=== PATIENT | female | born 1950 | race Caucasian/White ===

== ENCOUNTER 2018-09-14 10:41 | Inpatient (IN) | payer OTHER, MEDICARE ==
[~2018-09-14 10:41] MED LIST: ROPIVACAINE 0.2% 80 MG, EPINEPHrine 0.2 MG, KETOROLAC TROMETHAMINE 30 MG, morphINE 10 M... IU ONE; TRANEXAMIC ACID 1,000 MG in NS 100 ML IV ONE
[2018-09-14] MEDS ORDERED: DEXAMETHASONE 4 MG/ML VIAL IVP ONE (11:20)
[2018-09-14] MEDS ORDERED: FAMOTIDINE 20 MG TAB PO ONE (11:20)
[2018-09-14] MEDS ORDERED: ceFAZolin 2 GM/DEXTROSE 100 ML IV ONE (11:20)
[2018-09-14] MEDS ORDERED: ACETAMINOPHEN 325 MG TAB PO ONE (11:20)
[2018-09-14] MEDS ORDERED: LIDOCAINE 1% 2 ML INJ ID PRN (11:21)
[2018-09-14] MEDS ORDERED: LR 1,000 ML IV ONE (11:21)
[2018-09-14] MEDS ORDERED: ceFAZolin 1 GM/5 ML SYR ONE (12:17)
--- NOTE | 2018-09-14 12:56 | PDHPUP ---
History & Physical Update H&P update statement: This history and physical update is based on an assessment of the patient which was completed after admission or registration (within 24 hours), but prior to the surgery/procedure. H&P update: H&P reviewed & patient examined, no change in patient's condition since H&P completed
--- NOTE | 2018-09-14 13:05 | PDANEPAE ---
ANE History of Present Illness right knee pain ANE Past Medical History - Cardiovascular History Hx Hypertension: Yes Hx Arrhythmias: No Hx Chest Pain: No Hx Coronary Artery / Peripheral Vascular Disease: No Hx CHF / Valvular Disease: No Hx Palpitations: No - Pulmonary History Hx COPD: No Hx Asthma/Reactive Airway Disease: Yes Hx Recent Upper Respiratory Infection: No Hx Oxygen in Use at Home: No Hx Sleep Apnea: No Sleep Apnea Screening Result - Last Documented: Negative Pulmonary History Comment: ASTHMA EXERCISE INDUCED SINCE AGE 59. URI 05/2018 TREATED WITH ANTIBIOTICS - Neurologic History Hx Cerebrovascular Accident: No Hx Seizures: No Hx Dementia: No - Endocrine History Hx Diabetes: No Hypothyroid: Yes Obesity: moderate Endocrine History Comment: HYPOTHYROID - Renal History Hx Renal Disorders: No - Liver History Hx Hepatic Disorders: No - Neurological & Psychiatric Hx Hx Neurological and Psychiatric Disorders: No - Cancer History Hx Cancer: No - Congenital Disorder History Hx Congenital Disorders: No - GI History GERD: mild Hx Gastrointestinal Disorders: Yes Gastrointestinal History Comment: GERD - Other Health History Other Health History: SEASONAL ALLERGIES. OSTEOARTHRITIS - Chronic Pain History Chronic Pain: Yes (PARISH KNEES and chronic back pain) - Surgical History Prior Surgeries: TLIF L3-4. Carpal tunnel right side,. Right knee scope,. hysterectomy total. APPENDECTOMY. TONSILLECTOMY ANE Review of Systems Review of Systems: - Exercise capacity Exercise capacity: >=4 METS METS (RN): 4 METS ANE Patient History - Allergies Allergies/Adverse Reactions: clindamycin Allergy (Verified 08/19/18 16:31) NAUSEA hydrocodone bitartrate [From Vicodin] Allergy (Verified 08/19/18 16:31) Abdominal Pain tramadol HCl [From Ultram] Allergy (Verified 08/19/18 16:31) ELEVATED HEART RATE Shingles Vaccine Allergy (Uncoded 08/19/18 16:31) ARM SWELLING - Home Medications Home Medications: Triamterene/Hydrochlorothiazid [Triamterene-Hctz 75-50 mg Tab] 0.5 tab PO DAILY 01/11/12 [Last Taken 09/13/18 07:30] Atorvastatin Calcium [Lipitor 20 mg (*)] 20 mg PO DAILY 06/02/13 [Last Taken 03/26 22:00] Levothyroxine [Synthroid 50 mcg (*)] 50 mcg PO DAILY06 06/02/13 [Last Taken 04/26 07:30] Losartan Potassium [Cozaar 50 mg (*)] 100 mg PO DAILY 06/02/13 [Last Taken 09/13 07:30] Albuterol [Proventil Inhaler HFA (*)] 2 puffs IH Q4H PRN 09/08/16 [Last Taken ] Estradiol [Estradiol 1 MG (*)] 0.5 mg PO DAILY 09/08/16 [Last Taken 09/14/18 07: 30] Glucosamine/Chondroitin [Glucosamine/Chondroitin (*)] 1 each PO DAILY 09/08/16 [ Last Taken 08/31/18] Herbals/Supplements -Info Only 1 ea PO DAILY 09/08/16 [Last Taken 09/13/18] Pantoprazole Sodium [Protonix 40mg (*)] 40 mg PO DAILY PRN 09/08/16 [Last Taken 09/13/18 22:00] Aspirin EC [Aspirin EC 81 mg (*)] 81 mg PO HS 08/19/18 [Last Taken 08/31/18] Fexofenadine HCl [Jessica Allergy] 60 mg PO HS PRN 08/19/18 [Last Taken 09/13/18 ] Gabapentin [Neurontin 300 MG (*)] 300 mg PO DAILY@12 08/19/18 [Last Taken 12:00] Gabapentin [Neurontin 300 MG (*)] 600 mg PO BID 08/19/18 [Last Taken 09/14/18 07 :30] Hydrocortisone [Cortef 10 mg (*)] 5 mg PO BID 08/19/18 [Last Taken 08/31/18] Levocetirizine Dihydrochloride [Xyzal] 5 mg PO HS PRN 08/19/18 [Last Taken 09/12] Multivitamins [Multivitamin (*)] 1 each PO DAILY 08/19/18 [Last Taken 08/31/18] Wylie-3 Fatty Acids [Fish Oil 1000 mg (*)] 1,000 mg PO DAILY 08/19/18 [Last Taken 08/31/18] Potassium Cl [Klor-Con 20 meq (*)] 10 meq PO DAILY 08/19/18 [Last Taken 09/13/18 ] celeCOXIB [Celebrex (*)] 200 mg PO BID 08/19/18 [Last Taken 08/31/18] guaiFENesin [Mucinex 600 MG (*)] 600 mg PO BID PRN 08/19/18 [Last Taken 09/13/18 ] oxyCODONE/APAP 5/325 [Percocet 5/325 (*)] 1 tab PO Q6H PRN 08/19/18 [Last Taken 09/13/18 22:00] Bevespi Aerosphere Inhaler 09/14/18 [Last Taken 09/14/18 07:30] Warfarin Sodium 09/14/18 [Last Taken 09/13/18 22:00] - NPO status NPO Since - Liquids (Date): 09/14/18 NPO Since - Liquids (Time): 10:00 NPO Since - Solids (Date): 09/13/18 NPO Since - Solids (Time): 00:59 - Anes Hx Anes Hx: no prior problems - Smoking Hx Smoking Status: Never smoked - Family Anes Hx Family Anes Hx: none Family Hx Anesthesia Complications: No ANE Labs/Vital Signs - Vital Signs Blood Pressure: 152/76 Heart Rate: 73 Respiratory Rate: 20 O2 Sat (%): 96 Height: 154.94 cm Weight: 86.183 kg ANE Physical Exam - Airway Neck exam: FROM Mallampati Score: Class 2 Mouth exam: normal dental/mouth exam - Pulmonary Pulmonary: no respiratory distress - Cardiovascular Cardiovascular: regular rate and rhythym - ASA Status ASA Status: III ANE Anesthesia Plan Anesthesia Plan: GA w LMA (Discussed doing spinal for procedure however patient refuses spinal 2/2 h/o back pain and L3-4 fusion. Plan for GA with LMA)
[2018-09-14] MEDS ORDERED: MIDAZOLAM 2 MG/2 ML VIAL IVP ONE (13:06)
[2018-09-14] MEDS ORDERED: fentaNYL 250 MCG/5 ML INJ ONE (13:13)
[2018-09-14] MEDS ORDERED: PROPOFOL 200 MG/20 ML VIAL ONE (13:13)
[2018-09-14] MEDS ORDERED: DEXAMETHASONE 4 MG/ML VIAL ONE ×2 (13:16)
[2018-09-14] MEDS ORDERED: ONDANSETRON 4 MG/2 ML VIAL ONE ×2 (13:17→18:33)
[2018-09-14] MEDS ORDERED: HYDROmorphONE/DILAUDID 2 MG/ML INJ ONE ×3 (14:21→17:28)
[2018-09-14] MEDS ORDERED: LIDOCAINE 2% 5 ML SDV ONE (14:28)
[2018-09-14] MEDS ORDERED: METOCLOPRAMIDE 10 MG/2 ML VIAL IVP PRN (15:53)
[2018-09-14] MEDS ORDERED: LR 500 ML IV PRN (15:53)
[2018-09-14] MEDS ORDERED: oxyCODONE IR 5 MG TAB PO PRN (15:53)
[2018-09-14] MEDS ORDERED: MEPERIDINE 25 MG/0.5 ML AMP IVP PRN (15:53)
[2018-09-14] MEDS ORDERED: PROMETHAZINE HCL 25 MG/ML INJ IVP PRN (15:53)
[2018-09-14] MEDS ORDERED: LABETALOL HCL 5 MG/ML 20 ML MDV IVP PRN (15:53)
[2018-09-14] MEDS ORDERED: NALOXONE HCL 0.4 MG/ML INJ IVP PRN (15:53)
[2018-09-14] MEDS ORDERED: ACETAMINOPHEN 500 MG TAB PO PRN (15:53)
[2018-09-14] MEDS ORDERED: ALBUTEROL 3 ML DEYVIAL IH PRN (15:53)
[2018-09-14] MEDS ORDERED: fentaNYL 100 MCG/2 ML INJ IVP PRN (15:53)
[2018-09-14] MEDS: HYDROmorphONE/DILAUDID 2 MG/ML INJ IVP PRN ×7 (16:21→17:30)
--- NOTE | 2018-09-14 16:23 | SOAPPROG ---
SOAP Progress Note Assessment/Plan: Assessment:S/P RTKA 09/14/[address] Ordonez. No Complications. Plan: [facility] Care ice machine SCD's for mechanical VTE prophylaxis Continue IV Ancef per post-op orders, for 24 hours WBAT RLE PT/OT consults Hospitalist consult appreciated due to pts. coexisting conditions-spoke with Dr. Minor Pain meds as ordered, transition to oral when able Drain can be pulled in 24 hours S: pt. in recovery, just waking up. States that her pain is an 8/10. O: pt. alert, uncomfortable, conversing and answering questions appropriately. 09/14/18 16:19 Objective: Vital Signs Temp Pulse Resp BP Pulse Ox 37.2 C 73 20 152/76 H 96 09/14/18 11:55 09/14/18 13:24 09/14/18 13:24 09/14/18 13:24 09/14/18 13:24 ICD10 Worksheet Patient Problems: Problems Problem Status Onset Arthrodesis status Acute Lumbago Acute Lumbar radiculitis Acute Lumbar stenosis Acute
[2018-09-14] MEDS ORDERED: ACETAMINOPHEN 325 MG TAB PO PRN (16:25)
[2018-09-14] MEDS ORDERED: ONDANSETRON 4 MG/2 ML VIAL IVP PRN (16:25)
[2018-09-14] MEDS ORDERED: HYDROmorphONE/DILAUDID 1 MG/ML INJ IVP PRN (16:25)
--- NOTE | 2018-09-14 16:25 | POSTOPPROG ---
Post Op Note Date of Operation: 09/14/18 Surgeon: Ace Ordonez Chief Controller Center: [facility] Anesthesia: GET(General Endotracheal) Pre-op Diagnosis: Right knee osteoarthritis Post-op Diagnosis: Right Knee osteoarthritis Procedure: right total knee arthroplasty Inf/Abcess present in the surg proc area at time of surgery?: No Depth: Deep Incisional (Fascial) EBL: 50-100 Complications: None Drains: Erasmo Stahl
[2018-09-14] MEDS ORDERED: NS 1,000 ML IV SCH (16:30)
[2018-09-14] MEDS ORDERED: PANTOPRAZOLE SODIUM 40 MG TAB PO PRN (16:35)
[2018-09-14] MEDS ORDERED: oxyCODONE IR 5 MG TAB ONE (17:06)
--- NOTE | 2018-09-14 17:11 | POSTANESTH ---
Post Anesthetic Evaluation Cardiovascular Status: Normal, Stable Respiratory Status: Normal, Stable Level of Consciousness/Mental Status: Can Participate in Eval Pain Control: Adequate, Prn Tx Ordered Nausea/Vomiting Control: Adequate, Prn Tx Ordered Complications Possibly Related to Anesthesia: None Noted
[2018-09-14] MEDS ORDERED: WARFARIN SODIUM 5 MG TAB PO SCH (18:00)
[2018-09-14] MEDS: ceFAZolin 2 GM/DEXTROSE 100 ML IV SCH (20:04)
[2018-09-14] MEDS: GABAPENTIN 300 MG CAP PO SCH (20:50)
[2018-09-14] MEDS: oxyCODONE IR 5 MG TAB PO PRN (20:53)
[2018-09-14] MEDS: ONDANSETRON DISINTEGRATING 4 MG TAB PO PRN (22:16)
[2018-09-15] MEDS: oxyCODONE IR 5 MG TAB PO PRN ×5 (00:04→19:59)
[2018-09-15] MEDS: CYCLOBENZAPRINE 10 MG TAB PO PRN ×4 (00:49→23:19)
--- NOTE | 2018-09-15 02:28 | GOP ---
DATE OF OPERATION: 09/14/2018 SURGEON: Jose Enrique Ordonez MD CELLAR WORKER: Rachael Koenig PA-C. ANESTHESIA: General. PREOPERATIVE DIAGNOSIS: Severe osteoarthritis of the right knee. POSTOPERATIVE DIAGNOSIS: Severe osteoarthritis of the right knee. PROCEDURE PERFORMED: Right total knee arthroplasty. FINDINGS: INDICATIONS: This is a 68-year-old female with progressive and severe pain and disability related to the osteoarthritis, failing nonoperative treatment, being admitted for surgical care. We have discu ssed risks, benefits, and limitations of the procedure preoperatively with the patient. Use of a assistant track and field coach was required to assist in wound exposure. DESCRIPTION OF PROCEDURE: After an adequate general anesthetic was obtained and IV antibiotics were administered, the patient's right lower extremity was prepped and draped in the usual sterile fashion. The limb was exsanguinat ed with the Esmarch and the tourniquet elevated to 300 mmHg pressure. A midline incision was placed over the right knee. Dissection was carried down through the subcutaneous tissues. Hemostasis was o btained using electrocautery. A medial arthrotomy was performed. The patella was dislocated lateral ly. There was severe girb-rx-xbnk osteoarthritis involving the medial and patellofemoral compartment s. The medial and lateral menisci remnants were excised, as was the ACL. Osteophytes were removed. The intramedullary canal of the femur was entered. 9 mm of distal femur was resected in a 5-degree valgus alignment. We initially sized this to a 5 component; however, we then subsequently downsized this to a 4 narrow. The AP cutting jig was applied and the anterior, posterior, and chamfer cuts were now performed in the routine fashion. The intramedullary tibial cutting jig was applied. Approximately 9 mm of proximal tibia was resected perpendicular to the long axis of the tibia with 3 degrees of posterior slope, preserving the php architect ior cruciate ligament. The tibia sized to a 3 component. A trial reduction was now performed using a 3 tibial tray, a 9 mm insert, and a 4 narrow femoral impl ant, and full range of motion with excellent stability was confirmed. The overall alignment was conf irmed to be adequate with a long alignment mary. Tibial tray rotation was marked. The patella was me asured and approximately 8 mm resected. This was sized to a 29 component. The patellar lug holes we re drilled and with the 29 mm trial patellar component, patellar tracking was normal. The femoral lug holes were punched. The proximal tibia was prepared with the keel punch in the routi ne fashion. The first batch of cement was mixed, and the 3 tibial tray was demented into place and held firm whil e the cement hardened. Excess cement was removed. A bone plug was placed in the distal femur. It s hould be mentioned that the proximal tibia was prepared with pulsatile lavage prior to cementing. A second batch of cement was mixed. The distal femur and patellar surfaces were prepared with pulsat ile lavage, and a 4 narrow femoral implant impacted into place. Excess cement was removed, and the k nee was extended with a 9 mm trial insert. The 29 mm patellar button was cemented into place. Exces s cement was removed, and the patellar implant held firm with a patellar clamp while the cement cured . Again, a trial reduction using the 9 mm insert resulted in full extension and flexion, with excellent varus/valgus stability through a full range of motion and normal patellar tracking. After further pulsatile lavage and irrigation, the final 9 mm polyethylene insert was impacted into p lace, and again, excellent range of motion and excellent stability with normal patellar tracking was confirmed. The tourniquet was deflated after 101 minutes' tourniquet time. Hemostasis was obtained using electr ocautery. A large drain was left in place intra-articularly. The medial arthrotomy was closed using interrupted #2 FiberWire and #1 Vicryl sutures. Subcutaneous closure performed using interrupted 2- 0 Vicryl sutures. Skin closed was performed using stainless steel kendell. A cocktail comprised of ropivacaine, epinephrine, ketorolac, and morphine was injected. Sterile dressings were applied, followed by an Josiah wrap. There were no complications. The patient tolerated the procedure well and returned to the recovery r o in stable condition. IMPLANTS UTILIZED: 1. Bush [employer]hew size 4, narrow right, cruciate-retaining Legion Oxinium femoral component. 2. [employer]hew size 3 Cherie II, right, nonporous tibial base plate. 3. [employer]hew 29 mm Cherie II resurfacing patellar component. 4. [employer]hew size 3, 9 mm Legion CR XLPE, high-flexion articular insert. /[id number]/MODL
[2018-09-15] MEDS: LEVOTHYROXINE 50 MCG TAB PO SCH (04:53)
[2018-09-15] MEDS: ceFAZolin 2 GM/DEXTROSE 100 ML IV SCH (04:53)
[2018-09-15 05:18] LABS: INR 1.06 (0.83-1.16)
[2018-09-15] MEDS: ONDANSETRON DISINTEGRATING 4 MG TAB PO PRN (05:35)
[2018-09-15] MEDS: POTASSIUM CL 10 MEQ TAB PO SCH (09:00)
[2018-09-15] MEDS: GABAPENTIN 300 MG CAP PO SCH ×2 (09:00→20:49)
[2018-09-15] MEDS: ESTRADIOL 1 MG TAB PO SCH (09:01)
[2018-09-15] MEDS: ATORVASTATIN CALCIUM 20 MG TAB PO SCH (09:02)
--- NOTE | 2018-09-15 10:31 | SOAPPROG ---
SOAP Progress Note Assessment/Plan: Assessment:S/P RTKA 09/14/[address] Ordonez. No Complications. Plan: COntinue [facility] ice machine SCD's for mechanical VTE prophylaxis-BLE's Continue IV Ancef per post-op orders, for 24 hours WBAT RLE AFO brace ordered due to pts. foot drop. Then she can begin to work with PT/OT. Pt. will not be discharged today. PT/OT consults Hospitalist consult appreciated due to pts. coexisting conditions-spoke with Dr. Minor yesterday. Pain meds as ordered, transition to oral when able. will switch anti-emetic to phenergan to see if better tolerated. Leave drain, can be pulled tomorrow AM. S: pts. knee pain currently managed by oral pain meds only, she is happy with her progress regarding her knee pain. Still has numbness along the outer border of the right lower leg into the dorsal aspect of the foot and toes 1-5. Also has inability to dorsiflex the toes. Pt. had some vomiting after water and crackers. Was able to keep a smoothie down. Naisea seems to be slowly improving. O: pt. alert, uncomfortable, conversing and answering questions appropriately, NAD. Exam of the RLE reveals no redness, warmth, edema. Sensation is not present to light touch to the mid- lateral right lower leg along the lateral lower leg to the lateral ankle, across the dorsal aspect of the foot and into the first three toes. Sensation to light touch slightly present to the 4th and 5th toes. Pt. has no ability to dorsiflex the toes or ankle. She has a foot drop when she is pulled into passive dorsiflexion. Her symptoms of peroneal nerve neuropraxia continue. 09/14/18 16:19 09/15/18 10:27 09/15/18 10:31 Objective: Vital Signs Temp Pulse Resp BP Pulse Ox 37.0 C 71 18 118/60 99 09/15/18 08:00 09/15/18 08:00 09/15/18 08:00 09/15/18 08:00 09/15/18 08:00 09/14/18 09/15/18 09/16/18 05:59 05:59 05:59 Intake Total 2617 Output Total 840 Balance 1777 PT 14.0 SEC (12.0-15.0) 09/15/18 04:40 INR 1.06 (0.83-1.16) 09/15/18 04:40 ICD10 Worksheet Patient Problems: Problems Problem Status Onset Arthrodesis status Acute Lumbago Acute Lumbar radiculitis Acute Lumbar stenosis Acute
[2018-09-15] MEDS: Bevespi Aerosphere Inhaler IH SCH ×2 (10:36→20:55)
[2018-09-15] MEDS: TRIAMTERENE/HCTZ 75/50 1 EACH TAB PO SCH (11:12)
[2018-09-15] MEDS: LOSARTAN POTASSIUM 50 MG TAB PO SCH (11:12)
--- NOTE | 2018-09-15 12:10 | ASMTCMCOM ---
CM Note CM Note Notes: Pt admitted for a scheduled knee surgery, she seems to have developed some "foot drop" PT recommends home care. OT evals pending, pt lives at home with . Met with pt and to discuss home care, CM brought list, referral sent to [facility] and they are able to accept. DC Plan: Homecare/ [facility] (RN/PT) Date Signed: 09/15/2018 12:10 PM Electronically Signed By:Bess Piper RN
[2018-09-15] MEDS ORDERED: ALBUTEROL 60 PUFFS/8 GM MDI IH PRN (13:41)
[2018-09-15] MEDS ORDERED: POLYETHYLENE GLYCOL 3350 17 GM PKT PO PRN (13:47)
[2018-09-15] MEDS ORDERED: BISACODYL 10 MG SUPP PR PRN (13:47)
[2018-09-15] MEDS ORDERED: LACTULOSE 20 GM/30 ML UDCUP PO PRN (13:47)
[2018-09-15] MEDS ORDERED: MAGNESIUM HYDROXIDE 30 ML UDCUP PO PRN (13:47)
--- NOTE | 2018-09-15 14:00 | PDMN ---
Medical Necessity Medical necessity: Changed to IP as of 09/15/18 per MD and MCG S-700; los >2 mn for ongoing pain management, new foot drop, n/v s/p TKA; requiring IVF, pain management, anti-emetics and therapies.
--- NOTE | 2018-09-15 14:28 | GCON ---
REFERRING PHYSICIAN: Jose Enrique Ordonez MD REASON FOR CONSULTATION: Medical management. HISTORY OF PRESENT ILLNESS: The patient is a 68-year-old female who presented to the hospital for a scheduled right total knee arthroplasty. I have seen the patient in the postop setting, and she is d oing well. PAST MEDICAL HISTORY: Asthma, hypertension, hyperlipidemia, hypothyroidism, GERD, chronic pain, oste oarthritis. PAST SURGICAL HISTORY: Spinal fusion, hysterectomy. FAMILY HISTORY: 1. Notable for diabetes mellitus type 2. 2. Hypertension. SOCIAL HISTORY: The patient denies any drugs or tobacco. She has maybe 1-2 alcoholic beverages a we ek. ALLERGIES: To nickel, Ultram, Vicodin, clindamycin, Zostavax. MEDICATIONS: Maxzide, ProAir, Crestor, Synthroid, losartan, potassium, gabapentin, CBD oil, estradio l, aspirin, Protonix. REVIEW OF SYSTEMS: Comprehensive review of systems is done. The patient does complain of right-side d leg and knee pain. She does feel a little bit nauseous. She has no other complaints other than th is. Review of systems is negative other than noted. PHYSICAL EXAM: GENERAL: The patient is alert. VITAL SIGNS: Afebrile, 36.3; pulse is 68; respirato ry rate is 14; blood pressure is 108/59. She is saturating 93% on room air. HEENT: Normocephalic, atraumatic. Mucosal membranes are moist. Pupils equal, round, reactive to light. NECK: Supple. L UNGS: Clear to auscultation bilaterally. No rhonchi or wheezes noted. GASTROINTESTINAL/ABDOMEN: B owel sounds are diminished throughout. There is no guarding or rigidity noted. There is mild disten tion. EXTREMITIES: Without clubbing or cyanosis noted. The right lower extremity is elevated with dressing clean, dry, and intact. SKIN: Without rashes or lesions identified. NEUROLOGICAL: The pa tient has no focal deficits. LABORATORY EVALUATION: PT and INR within normal limits. RADIOLOGICAL STUDIES: Knee x-ray. ASSESSMENT/PLAN: The patient is a 68-year-old female who had a scheduled right total knee arthroplas ty per Dr. Ordonez. Medical conditions include: 1. Asthma. The patient has no signs of acute exacerbation at this time. We will continue her previ ously prescribed home medications. 2. Hypothyroidism. This does appear to be stable. We will not further evaluate her labs during thi s hospitalization. We will continue her home medication. 3. Hypertension. The patient's blood pressure medication was held this morning secondary to lower b lood pressure. We will continue to hold until it appears that her pressure can tolerate her home med ication. 4. Chronic pain. The patient's home medications have been continued. She is responding well to denis gical intervention. 5. Gastroesophageal reflux disease. Protonix will be continued. 6. Constipation. Aggressive bowel protocol has been ordered for the patient as she has not had a jamari wel movement and her bowel sounds are diminished throughout. She is also complaining of some nausea with vomiting when oral intake is present. We will continue to encourage bowel therapy and anticipat e that this will resolve on its own. 7. Deep vein thrombosis prophylaxis. The patient will be reinitiated on Coumadin. We will continue to follow along during this patient's hospitalization. Further physical therapy and occupational therapy evaluations will determine whether she requires shelter facility or [facility] care. Thank you for the consult on this pleasant woman's care. /[id number]/MODL
[2018-09-15] MEDS ORDERED: WARFARIN SODIUM 7.5 MG TAB PO ONE (16:00)
[2018-09-15] MEDS ORDERED: PROMETHAZINE HCL 25 MG/ML INJ IVP PRN (16:20)
[2018-09-15] MEDS ORDERED: LORazepam 2 MG/ML INJ IVP PRN (17:15)
[2018-09-15] MEDS: ACETAMINOPHEN 325 MG TAB PO SCH ×2 (17:30→23:04)
[2018-09-15] MEDS: SENNOSIDES/DOCUSATE SODIUM TAB PO SCH (20:58)
[2018-09-16] MEDS: oxyCODONE IR 5 MG TAB PO PRN ×5 (04:11→23:21)
[2018-09-16] MEDS: ACETAMINOPHEN 325 MG TAB PO SCH ×4 (05:05→23:21)
[2018-09-16] MEDS: LEVOTHYROXINE 50 MCG TAB PO SCH (05:06)
[2018-09-16 05:25] LABS: INR 1.6 (0.83-1.16); PROTIME(PATIENT) 19.2 SEC (12.0-15.0)
[2018-09-16] MEDS: Bevespi Aerosphere Inhaler IH SCH ×2 (08:24→20:13)
[2018-09-16] MEDS: ESTRADIOL 1 MG TAB PO SCH (08:37)
[2018-09-16] MEDS: GABAPENTIN 300 MG CAP PO SCH ×2 (08:37→20:14)
[2018-09-16] MEDS: ATORVASTATIN CALCIUM 20 MG TAB PO SCH (08:37)
[2018-09-16] MEDS: SENNOSIDES/DOCUSATE SODIUM TAB PO SCH ×2 (08:38→20:14)
[2018-09-16] MEDS: LOSARTAN POTASSIUM 50 MG TAB PO SCH (08:40)
[2018-09-16] MEDS: POTASSIUM CL 10 MEQ TAB PO SCH (08:40)
[2018-09-16] MEDS: TRIAMTERENE/HCTZ 75/50 1 EACH TAB PO SCH (08:40)
[2018-09-16] MEDS: CYCLOBENZAPRINE 10 MG TAB PO PRN ×2 (10:53→16:58)
--- NOTE | 2018-09-16 11:28 | SOAPPROG ---
SOAP Progress Note Assessment/Plan: Assessment:S/P RTKA 09/14/[address] Ordonez. No complications intra- operatively. Plan: Continue [facility] Care ice machine SCD's for mechanical VTE prophylaxis-BLE's WBAT RLE AFO brace ordered due to pts. foot drop-awaiting delivery, [facility] was out of them yesterday, will hopefully deliver one this afternoon. Pt. will not be discharged today Continue to work with PT/OT. Pt. has concerns about getting up 4 stairs in her home to enter the house, no spot to place walker. She would like to be able to complete several stairs in PT before she is discharged home. Continue oral pain meds. when able. Pharmacy will continue to dose warfarin until pt. is discharged home. S: Pts. knee pain currently managed by oral pain meds only. At rest pain is minimal, 6/10 with movement. She worked with PT on ROM and ambulation today, stated that her knee felt very swollen, limited her ROM. She still has numbness along the outer border of the right lower leg into the dorsal aspect of the foot and toes 1-5. Also has inability to dorsiflex the toes. Pt. has been able to eat and drink normally today. No further fevers, no chest, pain, SOB. O: pt. alert, comfortable, conversing and answering questions appropriately, NAD. Exam of the RLE reveals no redness, warmth, edema. Her incision appears to be healing well with no surrounding redness, warmth, discharge. Her dressing had slipped, so a new xeroform, gauze and ABD pad applied to her knee. Sensation is not present to light touch to the mid- lateral right lower leg along the lateral lower leg to the lateral ankle, across the dorsal aspect of the foot and into the first three toes. Sensation to light touch slightly present to the 4th and 5th toes. Pt. has no ability to dorsiflex the toes or ankle. She has a foot drop when she is pulled into passive dorsiflexion. Her symptoms of peroneal nerve neuropraxia continue. 09/14/18 16:19 09/15/18 10:27 09/15/18 10:31 09/16/18 11:23 Objective: Vital Signs Temp Pulse Resp BP Pulse Ox 36.9 C 71 16 134/75 H 94 09/16/18 08:44 09/16/18 08:44 09/16/18 08:44 09/16/18 08:44 09/16/18 08:44 09/15/18 09/16/18 09/17/18 05:59 05:59 05:59 Intake Total 2617 1700 Output Total 840 2700 Balance 1777 -1000 PT 19.2 SEC (12.0-15.0) H 09/16/18 04:50 INR 1.60 (0.83-1.16) H 09/16/18 04:50 ICD10 Worksheet Patient Problems: Problems Problem Status Onset Arthrodesis status Acute Lumbago Acute Lumbar radiculitis Acute Lumbar stenosis Acute
--- NOTE | 2018-09-16 12:05 | SOAPPROG ---
SOAP Progress Note Assessment/Plan: Assessment: Stable, post op TKA. 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 Despite this has not had significant recovery in motor/ sensory function. Neurosurgery will review lumbar spine MRI, but does not appear to show any acute changes requiring additional treatment. There was no abnormal dissection or stressing of the joint intaoperatively, nor correction of valgus deformity required. She did have preoperative radiculopathy on the right which perhaps has made the nerve more vulnerable to neuropraxia. Plan: 09/16/18 11:56 Continue PT, awaiting AFO from [facility]. Pain management, observation of neuropraxia. EMG, NCV studies if no recovery in approximately 3 weeks. Subjective: Pain well controlled with Percocet. Nausea improved. Objective: Vital Signs Temp Pulse Resp BP Pulse Ox 36.9 C 71 16 134/75 H 94 09/16/18 08:44 09/16/18 08:44 09/16/18 08:44 09/16/18 08:44 09/16/18 08:44 09/15/18 09/16/18 09/17/18 05:59 05:59 05:59 Intake Total 2617 1700 Output Total 840 2700 Balance 1777 -1000 PT 19.2 SEC (12.0-15.0) H 09/16/18 04:50 INR 1.60 (0.83-1.16) H 09/16/18 04:50 Dressing dry, (wound examined 09/15/18, no erythema or abnormal drainage). Mild swelling of the knee. Compartments soft. Absent sensation over deep and superficial peroneal nerve distribution. Circulation normal. Has trace ankle dorsiflexion which does seem slightly improved, but absent toe dorsiflexion. Normal sensory and motor exam of the tibial nerve distribution. ICD10 Worksheet Patient Problems: Problems Problem Status Onset Arthrodesis status Acute Lumbago Acute Lumbar radiculitis Acute Lumbar stenosis Acute
--- NOTE | 2018-09-16 15:54 | HOSPPROG ---
Hospitalist Progress Note Assessment/Plan: DIAGNOSES: * postop TKA; overall doing reasonably well with modest pain * complication of foot drop after surgery * history of asthma, currently no asthma activity not requiring any treatment * history of hypertension currently well controlled * low-grade temperature elevation at 1 measure last night; current suspicion for infection is low but will follow closely PLANS: * No changes in current medication+ * Physical occupational therapy * Will follow her temperatures closely SUBJECTIVE: Has some knee pain but no other pains Is disappointed that she has the foot drop Eating okay, emptying her bladder and having bowel movements okay OBJECTIVE Vitals reviewed: Stable blood pressure pulse respirations; single temperature 38.3 degrees last night has been normal since Exam: alert oriented skin warm dry color ok resps not labored lungs clear BSs, good air movement heart regular abd soft nondistended nontender, bowel sounds present limbs warm, no edema iv site ok INR 1.6 Objective: Vital Signs Temp Pulse Resp BP Pulse Ox 37.2 C 74 12 127/68 H 95 09/16/18 12:00 09/16/18 12:00 09/16/18 12:00 09/16/18 12:00 09/16/18 12:00 09/15/18 09/16/18 09/17/18 06:59 06:59 06:59 Intake Total 2617 1700 Output Total 840 2700 Balance 1777 -1000 PT 19.2 SEC (12.0-15.0) H 09/16/18 04:50 INR 1.60 (0.83-1.16) H 09/16/18 04:50 ICD10 Worksheet Patient Problems: Problems Problem Status Onset Arthrodesis status Acute Lumbago Acute Lumbar radiculitis Acute Lumbar stenosis Acute
[2018-09-16] MEDS: WARFARIN SODIUM 5 MG TAB PO SCH (16:58)
[2018-09-17 05:24] LABS: INR 1.79 (0.83-1.16); PROTIME(PATIENT) 20.9 SEC (12.0-15.0)
[2018-09-17] MEDS: LEVOTHYROXINE 50 MCG TAB PO SCH (05:37)
[2018-09-17] MEDS: oxyCODONE IR 5 MG TAB PO PRN ×4 (05:38→21:34)
[2018-09-17] MEDS: ACETAMINOPHEN 325 MG TAB PO SCH ×4 (05:38→23:42)
[2018-09-17] MEDS: CYCLOBENZAPRINE 10 MG TAB PO PRN ×2 (05:50→16:33)
[2018-09-17] MEDS: SENNOSIDES/DOCUSATE SODIUM TAB PO SCH ×2 (07:39→21:37)
[2018-09-17] MEDS: LOSARTAN POTASSIUM 50 MG TAB PO SCH (07:40)
[2018-09-17] MEDS: ESTRADIOL 1 MG TAB PO SCH (07:41)
[2018-09-17] MEDS: GABAPENTIN 300 MG CAP PO SCH ×2 (07:41→21:34)
[2018-09-17] MEDS: ATORVASTATIN CALCIUM 20 MG TAB PO SCH (07:42)
[2018-09-17] MEDS: POTASSIUM CL 10 MEQ TAB PO SCH (07:42)
[2018-09-17] MEDS: TRIAMTERENE/HCTZ 75/50 1 EACH TAB PO SCH (07:43)
--- NOTE | 2018-09-17 09:24 | SOAPPROG ---
SOAP Progress Note Assessment/Plan: Assessment:S/P RTKA 09/14/[address] Ordonez. No complications intra- operatively. Plan: Continue [facility] ice machine DVT Prophylaxis: SCD's for mechanical VTE prophylaxis-BLE's. IS. WBAT RLE Maintain dry dressing, Mepiplex, placed today. Maintain dry dressing until first pre-op visit. AFO brace ordered due to pts. foot drop has now arrived. Maintain at all times. Pt. to D/C home once cleared by PT/OT, CM, hospitalists. Continue to work with PT/OT. Appreciate their reccs. Pt. has concerns about getting up 4 stairs in her home to enter the house, no spot to place walker. She would like to be able to complete several stairs in PT before she is discharged home. Continue oral pain meds: percocet. Pharmacy will continue to dose warfarin until pt. is discharged home. She will continue to take warfarin and PT/INR draws outpatient. Neuro has been consulted; I have advised patient to F/U with her neurologist at earliest convenience. Patient's peroneal symptoms cannot disclude the possibility of lumbar radiculopathy symptoms given her weakness in hip flexion, decreased sensation in an L5 distribution and foot drop. I have talked with Rachael Koenig, ROSAURA, and Dr. Ordonez to consult neurology anusha for possible lumbar radiculopathy symptoms. Spoke with Dr. Sanchez's AGRICULTURAL PLOW OPERATOR, Kerry, who said they will try and see her next week; would like to see if we can order an EMG prior to her visit. Will attempt to schedule in preparation. Advised patient to watch for worsening pain, abnormal numbness/tingling, worsening change in distal ROM or strength, change in bowel or bladder function , saddle anesthesia symptoms, cramping in her calves/ankles, worsening change in heat/color of extremities or around wound site, abnormal swelling, fever, chills, abnormal bleeding/oozing/discharge and to seek immediate medical attention if seen. Patient seen/discussed in conjunction with Dr. Ordonez. 09/17/18 09:53 Subjective: Alone in room. Able to respond appropriately to questions. Has passed flatus. No BM. States pain is overall well controlled at this time. She feels comfortable going home on Percocet. She has worked with PT/OT on ROM and ambulation today She still has numbness over the anterolateral aspect of her right lower extremity extending into the dorsum of her foot. She has been able to eat and drink normally today. No further fevers, no chest, pain, SOB. Denies worsening numbness/tingling, worsening change in distal ROM or strength, cough, congestion, dyspnea, cramping in her calves/ankles, abnormal bleeding/ oozing/discharge. Objective: Vital Signs Temp Pulse Resp BP Pulse Ox 36.7 C 69 16 117/62 92 09/17/18 07:25 09/17/18 07:25 09/17/18 07:25 09/17/18 07:43 09/17/18 07:25 09/16/18 09/17/18 09/18/18 05:59 05:59 05:59 Intake Total 1700 2000 325 Output Total 2700 1300 Balance -1000 700 325 PT 20.9 SEC (12.0-15.0) H 09/17/18 04:43 INR 1.79 (0.83-1.16) H 09/17/18 04:43 Patient is alert, comfortable, conversing and answering questions appropriately , NAD. Exam of the RLE reveals no erythema, ecchymosis or calor. Has 2+ non-pitting edema to right knee; all compartments soft. Her incision appears to be well healing well with no erythema, ecchymosis, calor, bleeding, oozing or discharge. Her dressing had slipped, so I have a applied a Mepiplex dressing today. Decreased sensation over anterolateral aspect of right lower extremity extending into dorsum of foot; suspicious of L5 radiculopathy symptoms. Unable to plantarflex/dorsiflex foot at this time. EHL strength: 1/5, unable to test plantarflexion/dorsiflexion strength due to inability to actively move the joint. Foot drop present. Hip flexor strength: 2/5; only able to actively flex the hip when she leans back to compensate; unable to sit up straight and flex her right hip. Concerns of peroneal neuropraxia vs lumbar radiculopathy symptoms at this time. Calves soft/supple and NTTP b/l with negative b/l Homans. Brisk cap refill b/l. Patient is able to ambulate with use of walker; does appear she is walking with a mild Trendelenberg gait. - Pending Discharge Pending Discharge Within 24 Hours: Yes Pending Discharge Date: 09/18/18 Pending Discharge Time: 11:00 ICD10 Worksheet Patient Problems: Problems Problem Status Onset Arthrodesis status Acute Lumbago Acute Lumbar radiculitis Acute Lumbar stenosis Acute
[2018-09-17] MEDS: Bevespi Aerosphere Inhaler IH SCH ×2 (09:27→21:35)
--- NOTE | 2018-09-17 14:05 | HOSPPROG ---
Hospitalist Progress Note Assessment/Plan: DIAGNOSES: * postop TKA; overall doing reasonably well with modest pain * complication of foot drop after surgery * history of asthma, currently no asthma activity not requiring any treatment * history of hypertension currently well controlled * fever each of last 2 nights, last night w rigors at 38.6, uncertain cause PLANS: * recommend follow temps again overnight * will order blood cultures to make sure nothing grows and will get a chest xray to assess for pneumonia/atelectasis SUBJECTIVE: Has some knee pain but no other pains Eating okay, emptying her bladder and having bowel movements okay OBJECTIVE Vitals reviewed: Stable blood pressure pulse respirations; fever again to 38.6 degrees last night has been normal since Exam: alert oriented skin warm dry color ok resps not labored lungs clear BSs, good air movement heart regular abd soft nondistended nontender, bowel sounds present limbs warm, no edema iv site ok INR 1.79 Objective: Vital Signs Temp Pulse Resp BP Pulse Ox 36.7 C 82 14 117/62 96 09/17/18 07:25 09/17/18 09:31 09/17/18 09:31 09/17/18 07:43 09/17/18 09:31 09/16/18 09/17/18 09/18/18 06:59 06:59 06:59 Intake Total 1700 2000 875 Output Total 2700 1300 300 Balance -1000 700 575 PT 20.9 SEC (12.0-15.0) H 09/17/18 04:43 INR 1.79 (0.83-1.16) H 09/17/18 04:43 ICD10 Worksheet Patient Problems: Problems Problem Status Onset Arthrodesis status Acute Lumbago Acute Lumbar radiculitis Acute Lumbar stenosis Acute
[2018-09-17] MEDS: WARFARIN SODIUM 5 MG TAB PO SCH (16:33)
[2018-09-18] MEDS: ACETAMINOPHEN 325 MG TAB PO SCH ×2 (05:40→10:32)
[2018-09-18] MEDS: oxyCODONE IR 5 MG TAB PO PRN ×2 (05:41→10:31)
[2018-09-18] MEDS: LEVOTHYROXINE 50 MCG TAB PO SCH (05:41)
[2018-09-18] MEDS: CYCLOBENZAPRINE 10 MG TAB PO PRN (05:46)
[2018-09-18 05:48] LABS: INR 2.03 (0.83-1.16)
--- NOTE | 2018-09-18 07:26 | HOSPPROG ---
Hospitalist Progress Note Assessment/Plan: DIAGNOSES: * postop TKA; overall doing reasonably well with modest pain * complication of foot drop after surgery * history of asthma, currently no asthma activity not requiring any treatment * history of hypertension currently well controlled * fever in postop setting is most likely due to atelectasis and or benign wound related issues, but no signs of infection anywhere PLANS: * pt may be safely discharged from Internal med standpoint * she should measure temps closely and report any fever to Dr Ordonez, follow for any respiratory or urinary symptoms and evaluate w primary MD if any related issues SUBJECTIVE: Has some knee pain but no other pains Eating okay, emptying her bladder and having bowel movements okay OBJECTIVE Vitals reviewed: No recurrence of fever past 36 hr, otherwise stable vitals Exam: alert oriented skin warm dry color ok resps not labored lungs clear BSs, good air movement heart regular abd soft nondistended nontender, bowel sounds present limbs warm, no edema iv site ok INR 2.0 I reviewed chest x-ray images, there is no infiltrate or effusion or other sign for cause of fever otherwise normal Objective: Vital Signs Temp Pulse Resp BP Pulse Ox 37.6 C 84 16 121/83 H 96 09/17/18 23:46 09/17/18 23:46 09/17/18 23:46 09/17/18 23:46 09/17/18 23:46 09/17/18 09/18/18 09/19/18 06:59 06:59 06:59 Intake Total 19995 Output Total 1300 1800 Balance 700 675 PT 23.0 SEC (12.0-15.0) H 09/18/18 05:27 INR 2.03 (0.83-1.16) H 09/18/18 05:27 ICD10 Worksheet Patient Problems: Problems Problem Status Onset Arthrodesis status Acute Lumbago Acute Lumbar radiculitis Acute Lumbar stenosis Acute
[2018-09-18] MEDS ORDERED: guaiFENesin 600 MG TAB.ER PO PRN (07:57)
[2018-09-18 08:48] VITALS: BP 131/93
[2018-09-18] MEDS ORDERED: CETIRIZINE 10 MG TAB PO PRN (09:00)
[2018-09-18] MEDS: GABAPENTIN 300 MG CAP PO SCH (09:24)
[2018-09-18] MEDS: LOSARTAN POTASSIUM 50 MG TAB PO SCH (09:25)
[2018-09-18] MEDS: POTASSIUM CL 10 MEQ TAB PO SCH (09:25)
[2018-09-18] MEDS: TRIAMTERENE/HCTZ 75/50 1 EACH TAB PO SCH (09:25)
[2018-09-18] MEDS: ATORVASTATIN CALCIUM 20 MG TAB PO SCH (09:25)
[2018-09-18] MEDS: SENNOSIDES/DOCUSATE SODIUM TAB PO SCH (09:26)
[2018-09-18] MEDS: ESTRADIOL 1 MG TAB PO SCH (09:26)
[2018-09-18] MEDS: Bevespi Aerosphere Inhaler IH SCH (09:49)
--- NOTE | 2018-09-18 10:33 | PDIAF ---
- Diagnosis Diagnosis: Right total knee arthroplasty Code Status: Full Code - Medication Management Additional Medication Instructions: Continue your daily dose of Coumadin until finished, 3 weeks from your surgery date. Continue to have your INR blood draws every Thursday and as prescribed. Discharge Medications: electronically signed and located in the Home Medication List. - Orders Services needed: Home [facility] Care Face to Face: I certify that this patient was under my care and that I had the required [id number] encounter meeting the encounter requirements on the discharge day. My findings support the fact that the patient is homebound as defined in Home Care Face to Face Continued: CMS Chapter 7 Medicare Benefits Manual 30.1.1 , The condition of the patient is such that there exists a normal inability to leave home and consequently, leaving home would require a considerable and taxing effort. Diet Recommendation: no restrictions on diet Diet Texture: Regular Texture Diet Mcneil: No Wound Care Instructions: Leave your dressing in place until your post-op visit with . It will be removed at that time with your kendell as well. Notify us immediately for redness, swelling, drainage or bleeding from the wound. Activity/Weight Bearing Restrictions: Weight bearing as tolerated with your AFO brace on at all times when ambulating Additional Instructions: TOTAL JOINT ARTHROPLASTY DISCHARGE INSTRUCTIONS 1. Your surgeon follows the [facility] protocol for reducing your risk of DVT (blood clots) following surgery. Medication will be ordered to prevent blood clots. A sudden increase in calf pain and/or swelling could indicate a blood clot in your leg. If this occurs, please call your surgeon or his/her emergency veterinary assistant. An ultrasound of the leg may be necessary to diagnose a blood clot. If you have conditions that make you a higher risk for blood clots, your surgeon may use more aggressive ways to prevent them. Notify your surgeon if you think you are a high risk for blood clots. 2. Swelling and bruising in the surgical leg is common. If you feel that it is excessive, please notify your surgeon. 3. Elevate your surgical leg with the ankle above the hip several times every day. Please keep the leg straight when you elevate by putting pillows under your foot. Do not put pillows under your knee. This will make being able to fully straighten more difficult. This is uncomfortable, but try to do it as much as possible. 4. For total knee replacements use compressive wrap on your knee for 3-5 days after surgery, then you can discontinue it. 5. Use a walker or crutches for 1-2 weeks. Progress your weight-bearing as tolerated. You may start to use a cane when you feel stable and safe. 6. You will receive physical therapy instructions in the hospital. Continue those exercises at home. There are additional exercises in the total joint booklet you were given before surgery. Outpatient physical therapy will begin 7- 10 days after surgery. Please schedule this in advance. 7. Use ice on your knee at least 3-5 times every day for 30 minutes. This helps reduce pain and swelling. Also use it at night before falling asleep. 8. Leave your surgical dressing in place for 2 weeks. Your dressing is water resistant, but not waterproof. Cover it with Saran Wrap or Avmhy-e-Qecd before showering. You may shower as soon as you feel safe entering a shower. If you notice bleeding from your incision 2 or 3 days after surgery, please notify your surgeon. 9. Due to narcotics, decreased activity and altered diet, most patients experience constipation after surgery. Use paza-fyp-stafxar stool softeners while you are on narcotics. 10. You may drive a car when you are comfortable bearing weight, have good muscular control of your leg and are off narcotics. This usually occurs 2-4 weeks after surgery, depending on which leg was operated on. 11. If there are questions not addressed here, please refer the [facility] book given for more information. If you still have questions, please contact your surgeon s office. 13. If you have a life-threatening emergency, please call 911 and go to the emergency room immediately. For non-life threatening emergencies, please call your physicians office for advice before going to the emergency room. 14. Please notify [facility] with any concerns or questions. Particularly for a sudden increase in pain, swelling or pain of the calf/calves , redness, warmth or increased drainage from your incision, fever over 101 degrees. You can reach us at [phone] and will be connected to our office or to our after hours provider inside phone sales if after 5pm. 15. Wear the AFO brace on your right lower extremity when ambulating. 16. Please call Dr. Sanchez's office Thursday to schedule your appointment with him Thursday. 17. Dr. Cassidy will see you on Thursday at 3:00 pm in her office to perform your right lower extremity nerve conduction studies. 18. Please watch for worsening pain, abnormal numbness/tingling, worsening change in distal ROM or strength, change in bowel or bladder function, saddle anesthesia symptoms, cramping in your calves/ankles, worsening change in heat/ color of extremities or around wound site, abnormal swelling, fever, chills, abnormal bleeding/oozing/discharge and seek immediate medical attention if seen. 19. Be sure to have your blood draws every Thursday and as prescribed, until you are finished taking your Coumadin. Stay at your 5 mg dose once a day unless we call to notify you otherwise. - Follow Up Care Current Providers and Referrals: Ace Ordonez MD [Medical Doctor] - Saloni Sanchez MD [Medical Doctor] - Keyla Youssef MD [Primary Care Provider] - Luz Cassidy [Medical Doctor] -
--- NOTE | 2018-09-18 12:27 | ASMTLACE ---
LACE Length of stay for Answers: 4-6 days current admission Acuity / Level of Answers: Yes Care: Did the patient have an inpatient admission? Comorbidities - select Answers: Opioid dependence all that apply / Chronic pain Other Notes: HTN; Hypothyroid; GERD # of Emergency department Answers: 0 visits in the last 6 months Score: 12 Date Signed: 09/18/2018 12:26 PM Electronically Signed By:MARIUSZ Purvis
--- NOTE | 2018-09-18 12:31 | ASMTCMCOM ---
CM Note CM Note Notes: Pt medically stable for d/c with [facility], orders sent in Allscripts and [place] notified. Date Signed: 09/18/2018 12:30 PM Electronically Signed By:MARIUSZ Purvis
--- NOTE | 2018-09-18 15:56 | ASDISCHSUM ---
Discharge Information Plan Status:Home with Home Health Medically Cleared to Leave: Discharge Date:09/18/2018 02:17 PM CM D/C Disposition: ADT D/C Disposition:[facility]NOT[facility] Projected Discharge Date:09/17/2018 11:00 AM Transportation at D/C: Discharge Delay Reason: Follow-Up Date:09/17/2018 11:00 AM Discharge Slot: Final Diagnosis: Placement Information Referral Type:*Home Health Care Services Referral ID:[id number] Provider Name:[facility] [place] Address 1:[address] [place] [address] Address 2: City:[place] Selection Factors: State:[place] Patient Contact Information Contact Name:NATALIE Relationship: Address:[address] City:[place] Phone: State/Zip Code:[place] [address] Email: Financial Information Financial Class:Medicare Primary Plan Desc:MEDICARE INPATIENT Primary Plan Number:[id number] Secondary Plan Desc:AARP/MDR SUPPLEMENT Secondary Plan Number:[id number] Assessment Information LACE LACE Length of stay for Answers: 4-6 days current admission Acuity / Level of Answers: Yes Care: Did the patient have an inpatient admission? Comorbidities - select Answers: Opioid dependence all that apply / Chronic pain Other Notes: HTN; Hypothyroid; GERD # of Emergency department Answers: 0 visits in the last 6 months Score: 12 Date Signed: 09/18/2018 12:26 PM Electronically Signed By:MARIUSZ Purvis [facility] CM Progress Note CM Note CM Note Notes: Pt admitted for a scheduled knee surgery, she seems to have developed some "foot drop" PT recommends home care. OT aldo pending, pt lives at home with . Met with pt and to discuss home care, CM brought list, referral sent to [facility] and they are able to accept. DC Plan: Homecare/ [facility] (RN/PT) Date Signed: 09/15/2018 12:10 PM Electronically Signed By:Bess Piper RN [facility] Progress Note CM Note CM Note Notes: Pt medically stable for d/c with [facility], orders sent in [employer] and [place] notified. Date Signed: 09/18/2018 12:30 PM Electronically Signed By:MARIUSZ Purvis Intervention Information Intervention Type:*Incorrect Registration Date of Service:09/14/2018 05:44 PM Patient Type:Inpatient Staff Member:Haydee Daniels Hours: Discipline: Severity: Comment:
--- NOTE | 2018-09-18 16:07 | SOAPPROG ---
SOAP Progress Note Assessment/Plan: Assessment: POD #4 S/P RTKA 09/14/[address] Ordonez. No complications intra- operatively. In the PACU up on her recovery, she had developed a new peroneal nerve neuropraxia. She seems to be regaining some sensation to light touch to the lateral lower leg , the 4th and 5th toes and parts of the dorsal aspect of the foot. Plan: Continue [facility] ice machine at home. WBAT RLE AFO brace to be used when ambulating at all times. Begin/continue your PT exercises and formal PT to start as well. Pt. given rx for flexeril and percocet which have been working well to control pain and muscle cramping. Continue taking coumadin 5 mg daily unless instructed otherwise. INR to be drawn every Thursday and . Pt. to be discharged today with home health care for a short time until able to get to outpatient PT and lab for INR checks. S: Pts. knee pain currently managed by oral pain meds only. At rest pain is minimal, improving. The patient has loss of sensation to light touch to the lateral/distal 1/3 of the lower leg, into the foot and the 1st, 2nd and 3rd toes. No further fevers, no chest, pain, SOB. O: pt. alert, comfortable, conversing and answering questions appropriately, NAD. Exam of the RLE reveals no redness, warmth, edema. Her incision appears to be healing well with no surrounding redness, warmth, discharge. The patient has loss of sensation to light touch to the lateral/distal 1/3 of the lower leg , but does state that she can feel that my hands are cold, the dorsum of the medial foot and into the 1st and 2nd toes have no sensation to light touch. She is able to sense light touch to the 4th toe and almost normal sensation to the 5th toe. Pt. has trace dorsiflexion at the ankle, but has inability to dorsiflex the toes 09/14/18 16:19 09/15/18 10:27 09/15/18 10:31 09/16/18 11:23 09/18/18 15:57 Objective: Vital Signs Temp Pulse Resp BP Pulse Ox 37.2 C 85 16 131/93 H 98 09/18/18 09:24 09/18/18 08:00 09/18/18 08:00 09/18/18 08:00 09/18/18 08:00 09/17/18 09/18/18 09/19/18 05:59 05:59 05:59 Intake Total 1999 4393 50 Output Total 1300 1800 500 Balance 700 675 -450 PT 23.0 SEC (12.0-15.0) H 09/18/18 05:27 INR 2.03 (0.83-1.16) H 09/18/18 05:27 ICD10 Worksheet Patient Problems: Problems Problem Status Onset Arthrodesis status Acute Lumbago Acute Lumbar radiculitis Acute Lumbar stenosis Acute
--- NOTE | 2018-09-18 21:52 | GDS ---
PREOPERATIVE DIAGNOSIS: Right knee osteoarthritis. POSTOPERATIVE DIAGNOSIS: Right knee osteoarthritis. PROCEDURE PERFORMED: Right total knee arthroplasty. HOSPITAL COURSE: The patient was admitted, placed on IV Ancef for antibiotic measure and taken to [facility] operating room on 09/14/2018, whereupon she underwent a right total knee arthroplasty performed by Dr. Ordonez. There were no intraoperative complications. Shortly after her surgery, her deep and sup erficial peroneal nerves seemed to be inhibited with a new neurapraxia of these areas including decre ased sensation and ability to dorsiflex the toes and ankle. The patient continued to have these symp toms throughout her stay here and it was felt that these were due to a peroneal nerve neurapraxia. T he other possibility is that this could be from her ongoing lumbar spine issues. While here, her azam rosurgeon, Dr. Sanchez, was consulted and a lumbar spine MRI was ordered. He was able to compare it t o her previous MRI and did not see any changes. There was some question as to whether this may be danette mbar based on exam while she was here indicating that she had little to no right hip flexion. Dr. Merry wayne's office was therefore reconsulted and they would like to see her this upcoming week in the next few days. They did request that we facilitate the patient getting an EMG study of the right lower e xtremity. I discussed the patient's case with Dr. Cassidy's office, and Dr. Cassidy will be able to see the patient on Thursday this coming week at 3 p.m., in the office for an EMG so that it can be reviewed at her appointment with Dr. Sanchez this week as well. The patient was made aware of all these appoi ntments and had no issues. Postoperative treatment for VTE prophylaxis included mechanical prophylaxis with JAMI hose on the oppo site leg and sequential compression devices on both lower extremities as well as Coumadin for VTE werner moprophylaxis, which pharmacy was managing. The patient now knows to continue at her 5 mg dose daily unless otherwise instructed and to begin having her INR checked twice weekly as prescribed at her pr eop appointment. The patient was consulted on by a hospitalist team due to her ongoing medical conditions. She did vázquez ve a fever 2 separate evenings after her surgery, and therefore blood cultures and a chest x-ray were ordered by hospitalists. She was cleared today with no signs of systemic infection. Her fever reso lved as well. Her incision appeared to be healing well at the time of discharge with a dressing in p lace. Prior to her discharge, she was given an AFO brace to assist with her footdrop and was wearing this with ambulation with no difficulty upon my final exam of the patient. DISCHARGE INSTRUCTIONS: The patient was advised to follow up with Dr. Sanchez, Dr. Cassidy, and Dr. Anamika serna as previously discussed and at her postop visit with Dr. Ordonez. In addition, she will continue to ice and work on her PT exercises including range of motion and isometric quad exercises. She will continue her Coumadin as mentioned above and will notify us for any evidence of DVT including calf s welling, pain, burning, redness, or warmth. In addition, she will wear her AFO brace at all times wh en ambulating. Full set of total knee arthroplasty discharge [facility] as well. MEDICATIONS UPON DISCHARGE: Include Percocet, albuterol inhaler as before, Lipitor daily as before, Dulcolax as needed, Zyrtec as needed for allergies, Flexeril as needed for muscle spasms, estradiol, gabapentin, Mucinex, levothyroxine, losartan, Protonix, potassium chloride, Maxzide, and Coumadin. FOLLOWUP: The patient is scheduled to follow up with Dr. Ordonez 10-14 days' postoperatively on 09/28, or sooner with any additional concerns or complaints. She is encouraged to contact the office with any concerns or with any other questions. /[id number]/MODL
[2018-09-19] MEDS ORDERED: WARFARIN SODIUM 5 MG TAB PO SCH (09:00)
== END 2018-09-18 14:17 | disposition home health service (06) | DRG 470 ==
LOC: F3N 11:01 → INTOOBSV 11:01 → OBSVTOIN 13:47 → F3N 18:41
PROVIDERS: ADMIT Orthopaedic Surgery Sports Medicine; ATTEND Orthopaedic Surgery Sports Medicine
PROC: 0SRC0J9 Replacement of Right Knee Joint with Synthetic Substitute, Cemented, Open Approach (ICD-10-PCS; principal; 2018-09-14 13:30)
DX: M17.11 Unilateral primary osteoarthritis, right knee (principal); M21.371 Foot drop, right foot; R50.9 Fever, unspecified; J45.909 Unspecified asthma, uncomplicated; M51.34 Other intervertebral disc degeneration, thoracic region; I10 Essential (primary) hypertension; E78.5 Hyperlipidemia, unspecified; E03.9 Hypothyroidism, unspecified; K21.9 Gastro-esophageal reflux disease without esophagitis; Z98.1 Arthrodesis status
CPT/HCPCS: 97110-GP; 97116-GP; 97162-GP; 97165-GO; 97530-GP; 97535-GO; C1713; G8978-GP-CJ; G8979-GP-CI; G8980-GP-CI; G8987-GO-CJ; G8988-GO-CI; G8989-GO-CI; J0171; J0690; J1100; J1170; J1885; J2060; J2250; J2270; J2405; J2704; J2795; J3010

== ENCOUNTER → 2019-02-02 | Outpatient (CLI) | payer OTHER, MEDICARE | LOC: FIMAGING 11:34 | PROVIDERS: ATTEND Physical Medicine & Rehabilitation | DX: M25.561 Pain in right knee (principal); R93.6 Abnormal findings on diagnostic imaging of limbs; M76.891 Other specified enthesopathies of right lower limb, excluding foot; Z96.651 Presence of right artificial knee joint ==